=== PATIENT | male | born 1930 | race Caucasian/White ===

== ENCOUNTER 2020-08-23 19:50 | Inpatient (IN) | payer MEDICARE ==
[~2020-08-23] VITALS: Ht 182.9 cm; Wt 136.2 kg
[2020-08-23] MEDS ORDERED: ASPIRIN 81 MG CHEW TAB PO ONE ×2 (20:00→23:45)
[2020-08-23 21:06] LABS: BASOPHILS % 0.3 % (0.0-1.0); EOSINOPHILS # (AUTO) 0.2 (0.0-0.4); EOSINOPHILS % 1.8 % (0.0-6.0); HEMOGLOBIN 10.9 g/dL (14.0-18.0); LYMPHOCYTES # (AUTO) 2.1 (1.0-3.2); LYMPHOCYTES % 17.9 % (18.0-39.1); MEAN CORPUSCULAR HEMOGLOBIN 28.4 pg (28-32); MEAN CORPUSCULAR HGB CONC 32.1 g/dL (31-35); MEAN CORPUSCULAR VOLUME 88.5 fL (81-99); MONOCYTES # (AUTO) 0.8 (0.2-0.8); MONOCYTES % 6.7 % (4.4-11.3); NEUTROPHILS # (AUTO) 8.7 (2.1-6.9); NEUTROPHILS % 72.9 % (38.7-80.0); PLATELET COUNT 259 x10e3/uL (140-360); RED BLOOD COUNT 3.84 x10e6/uL (4.3-5.7); RED CELL DISTRIBUTION WIDTH 13.4 % (11.7-14.4)
[2020-08-23 21:23] LABS: ALBUMIN 2.3 g/dL (3.5-5.0); ALBUMIN/GLOBULIN RATIO 0.6 (0.8-2.0); ANION GAP 14.4 mmol/L (8-16); CALCIUM 7.9 mg/dL (8.4-10.2); CREATININE, SERUM 1.76 mg/dL (0.72-1.25); POTASSIUM 4.4 mmol/L (3.5-5.1)
[2020-08-23 21:29] LABS: CREATINE KINASE MB 2.1 ng/mL (0-5.0)
[2020-08-23 22:41] LABS: B-TYPE NATRIURETIC PEPTIDE2 21.1 pg/mL (0-100)
[2020-08-23] MEDS ORDERED: LEVOFLOXACIN 500 MG TAB PO ONE (23:15)
[2020-08-24] VITALS (7 sets, daily range): BP systolic 123–148; BP diastolic 59–72
[2020-08-24] MEDS: ONDANSETRON HCL INJ 2MG/ML 2ML 2 MG/ML VIAL IV PRN (00:43)
[2020-08-24] MEDS ORDERED: ONDANSETRON HCL INJ 2MG/ML 2ML 2 MG/ML VIAL ONE (00:45)
[2020-08-24] MEDS: PIPER-TAZ 3.375 GM 50 ML IV SCH ×3 (01:15→05:59)
[2020-08-24] MEDS ORDERED: NOVOLOG100 UNITS1 (04:40)
[2020-08-24] MEDS ORDERED: METOPROLOL SUCC25 MG (04:40)
[2020-08-24] MEDS ORDERED: FUROSEMIDE40 MG PO (04:40)
[2020-08-24] MEDS ORDERED: SERTRALINE HCL50 MG PO (04:40)
[2020-08-24] MEDS ORDERED: ZOFRAN4 MG PO (04:40)
[2020-08-24] MEDS ORDERED: COLACE100 MG PO (04:40)
[2020-08-24] MEDS ORDERED: HEMATINIC-FOLI1 EACH (04:40)
[2020-08-24] MEDS ORDERED: ACETAMINOP325 MG/10 PO (04:40)
[2020-08-24] MEDS ORDERED: NITROSTAT0.4 MG SL (04:40)
[2020-08-24] MEDS ORDERED: CARAFATE1 GM/10 ML PO (04:40)
[2020-08-24] MEDS ORDERED: LEVOTHYROXINE88 MCG PO (04:40)
[2020-08-24] MEDS ORDERED: PANTOPRAZOLE SO40 MG PO (04:40)
[2020-08-24] MEDS ORDERED: ASPIRIN81 MG (04:40)
[2020-08-24] MEDS ORDERED: DULCOLAX SUPP10 MG RC (04:40)
[2020-08-24] MEDS ORDERED: NIFEDIPINE ER30 M1 PO (04:40)
[2020-08-24] MEDS ORDERED: RANEXA500 MG PO (04:40)
[2020-08-24] MEDS ORDERED: ACETAMINOPHEN650 MG RC (04:40)
[2020-08-24] MEDS ORDERED: LACTULOSE20 GM/30 M PO (04:40)
[2020-08-24] MEDS ORDERED: ATORVASTATIN CA20 MG PO (04:40)
[2020-08-24] MEDS ORDERED: FAMOTIDINE20 MG PO (04:40)
[2020-08-24] MEDS ORDERED: ACETAMINOPHEN325 M1 PO (04:40)
[2020-08-24] MEDS ORDERED: GLIMEPIRIDE2 MG PO (04:40)
[2020-08-24] MEDS ORDERED: MUCINEX DM ER1 EACH PO (04:40)
[2020-08-24] MEDS ORDERED: ASCORBIC ACID500 MG PO (04:40)
[2020-08-24] MEDS ORDERED: BASAGLAR K100 UNIT/1 (04:40)
[2020-08-24] MEDS ORDERED: ZETIA10 MG PO (04:40)
[2020-08-24] MEDS ORDERED: SODIUM CHLORIDE 0.9% 250ML 250 ML ONE ×2 (05:52→10:24)
[2020-08-24] MEDS ORDERED: ACETAMINOPHEN 325 MG TAB PO PRN (08:45)
[2020-08-24] MEDS ORDERED: HYDRALAZINE HCL 20 MG/ML VIAL IV PRN (08:45)
[2020-08-24 08:47] LABS: BASOPHILS # (AUTO) 0.1 (0.0-0.1); BASOPHILS % 0.5 % (0.0-1.0); EOSINOPHILS # (AUTO) 0.6 (0.0-0.4); EOSINOPHILS % 5.2 % (0.0-6.0); HEMATOCRIT 34.1 % (38.2-49.6); HEMOGLOBIN 10.7 g/dL (14.0-18.0); LYMPHOCYTES # (AUTO) 2.7 (1.0-3.2); LYMPHOCYTES % 25.5 % (18.0-39.1); MEAN CORPUSCULAR HEMOGLOBIN 28.2 pg (28-32); MEAN CORPUSCULAR HGB CONC 31.4 g/dL (31-35); MONOCYTES # (AUTO) 0.8 (0.2-0.8); MONOCYTES % 7.9 % (4.4-11.3); NEUTROPHILS # (AUTO) 6.4 (2.1-6.9); NEUTROPHILS % 60.5 % (38.7-80.0); PLATELET COUNT 242 x10e3/uL (140-360); RED BLOOD COUNT 3.79 x10e6/uL (4.3-5.7); RED CELL DISTRIBUTION WIDTH 13.5 % (11.7-14.4)
[2020-08-24] MEDS ORDERED: LACTULOSE SYRUP 20 GM/30 ML UDC PO PRN (09:00)
[2020-08-24] MEDS ORDERED: BISACODYL 10 MG SUPP PR PRN (09:00)
[2020-08-24] MEDS ORDERED: NITROGLYCERIN 0.4 MG SUBL SL PRN (09:00)
[2020-08-24 09:11] LABS: ALBUMIN 2.5 g/dL (3.5-5.0); ALBUMIN/GLOBULIN RATIO 0.7 (0.8-2.0); ANION GAP 14.7 mmol/L (8-16); CALCIUM 8.1 mg/dL (8.4-10.2); CREATININE, SERUM 1.78 mg/dL (0.72-1.25); POTASSIUM 3.7 mmol/L (3.5-5.1)
[2020-08-24] MEDS ORDERED: DEXTROSE 50% SYRINGE 50 ML IV PRN (09:15)
[2020-08-24] MEDS ORDERED: TRAMADOL HCL 50 MG TAB PO PRN (09:15)
[2020-08-24] MEDS ORDERED: CEFTRIAXONE SOD 1 GM/NS 50 ML 50 ML IV SCH (09:30)
[2020-08-24 09:46] LABS: CREATINE KINASE MB 2.2 ng/mL (0-5.0)
[2020-08-24] MEDS: ASPIRIN 81 MG CHEW TAB PO SCH (10:40)
[2020-08-24] MEDS: FUROSEMIDE 40 MG TAB PO SCH ×2 (10:40→21:48)
[2020-08-24] MEDS: DOCUSATE SODIUM 100 MG CAP PO SCH ×2 (10:40→18:16)
[2020-08-24] MEDS: AZITHROMYCIN 500MG/NS 250 ML 250 ML IV SCH (10:40)
[2020-08-24] MEDS: GUAIFENESIN 600MG/DEXTROMETHORPHAN 30MG TABSR PO SCH ×2 (10:41→16:47)
[2020-08-24] MEDS: RANOLAZINE 500 MG TABSR PO SCH ×2 (10:41→21:49)
[2020-08-24] MEDS: ASCORBIC ACID 500 MG TAB PO SCH (10:44)
[2020-08-24] MEDS: NIFEDIPINE CR 30 MG TAB PO SCH (10:44)
[2020-08-24] MEDS: METOPROLOL SUCCINATE 25 MG TAB XL PO SCH ×2 (10:44→21:50)
[2020-08-24] MEDS: SUCRALFATE 1 GM/10 ML SUSP PO SCH ×3 (10:44→21:48)
[2020-08-24] MEDS ORDERED: PANTOPRAZOLE SOD 40 MG TABEC PO SCH (11:30)
[2020-08-24] MEDS: INSULIN LISPRO 100 UNIT/1 ML 3ML VIAL SQ SCH ×3 (11:30→21:00)
[2020-08-24] MEDS: ALBUTEROL/IPRATROPIUM 3 ML NEB NEB SCH ×4 (12:00→19:30)
[2020-08-24 12:23] LABS: CLARITY,URINE SL CLOUDY (CLEAR); COLOR,URINE YELLOW (YELLOW); LEUKOCYTE ESTERASE ,URINE TRACE (NEGATIVE)
[2020-08-24 12:24] LABS: BACTERIA,URINE RARE /HPF; BILIRUBIN,URINE NEGATIVE (NEGATIVE); EPITHELIAL CELLS,URINE FEW /LPF; KETONES,URINE NEGATIVE (NEGATIVE); NITRITE,URINE NEGATIVE (NEGATIVE); PROTEIN,URINE DIPSTICK 1+ (NEGATIVE); URINE UROBILINOGEN 0.2 mg/dL (0.2 - 1)
[2020-08-24] MEDS ORDERED: CEFEPIME HCL 1 GM VIAL IV SCH (13:00)
[2020-08-24] MEDS ORDERED: VANCOMYCIN 1GM/NS 250 ML 250 ML IV ONE ×2 (13:30→19:30)
[2020-08-24] MEDS ORDERED: FUROSEMIDE INJ 10 MG/ML 4 ML VIAL IV ONE (13:30)
[2020-08-24] MEDS ORDERED: TRELEGY ELLIPT1 EACH (14:29)
[2020-08-24] MEDS ORDERED: CITRATE OF MAGNESIA 300ML BOTTLE PO ONE (15:00)
[2020-08-24] MEDS: CEFEPIME 1GM/NS 0.9% 50 ML 50 ML IV SCH (16:47)
[2020-08-24] MEDS: ENOXAPARIN SOD INJ 40 MG/0.4 ML SYR SC SCH (16:47)
[2020-08-24] MEDS: FAMOTIDINE 20 MG TAB PO SCH ×2 (16:47→21:48)
[2020-08-24 18:54] LABS: CREATINE KINASE MB 2.4 ng/mL (0-5.0)
[2020-08-24] MEDS: INSULIN GLARGINE 100 UNITS/ML VIAL SQ SCH (21:00)
[2020-08-24] MEDS: ATORVASTATIN 20 MG TAB PO SCH (21:48)
[2020-08-24] MEDS: EZETIMIBE 10 MG TAB PO SCH (21:49)
[2020-08-24] MEDS: SERTRALINE HCL 50 MG TAB PO SCH (21:50)
[2020-08-25] VITALS (7 sets, daily range): BP systolic 122–182; BP diastolic 54–91
[2020-08-25] MEDS: ALBUTEROL/IPRATROPIUM 3 ML NEB NEB SCH ×5 (01:30→19:59)
[2020-08-25 05:19] LABS: BASOPHILS % 0.4 % (0.0-1.0); EOSINOPHILS # (AUTO) 0.7 (0.0-0.4); EOSINOPHILS % 6.8 % (0.0-6.0); HEMATOCRIT 31.7 % (38.2-49.6); HEMOGLOBIN 10.3 g/dL (14.0-18.0); LYMPHOCYTES # (AUTO) 2.4 (1.0-3.2); LYMPHOCYTES % 24.4 % (18.0-39.1); MEAN CORPUSCULAR HEMOGLOBIN 28.9 pg (28-32); MEAN CORPUSCULAR HGB CONC 32.5 g/dL (31-35); MONOCYTES # (AUTO) 0.7 (0.2-0.8); MONOCYTES % 7.6 % (4.4-11.3); NEUTROPHILS # (AUTO) 5.8 (2.1-6.9); NEUTROPHILS % 60.3 % (38.7-80.0); PLATELET COUNT 227 x10e3/uL (140-360); RED BLOOD COUNT 3.56 x10e6/uL (4.3-5.7); RED CELL DISTRIBUTION WIDTH 13.2 % (11.7-14.4)
[2020-08-25 05:33] LABS: INR 1.09; PROTHROMBIN TIME 14.7 seconds (11.9-14.5)
[2020-08-25 05:48] LABS: ALBUMIN 2.3 g/dL (3.5-5.0); ALBUMIN/GLOBULIN RATIO 0.7 (0.8-2.0); CALCIUM 7.9 mg/dL (8.4-10.2); CREATININE, SERUM 1.64 mg/dL (0.72-1.25)
[2020-08-25] MEDS: VILANTEROL INH SCH (06:00)
[2020-08-25] MEDS: LEVOTHYROXINE SODIUM 88 MCG TAB PO SCH (06:00)
[2020-08-25] MEDS: FLUTICASONE FUROATE INH SCH (06:00)
[2020-08-25] MEDS: UMECLIDINIUM INH SCH (06:00)
[2020-08-25 06:12] LABS: CHOL/HDL RATIO 3.3 (3.9-4.7)
[2020-08-25 06:33] LABS: THYROID STIMULATING HORMONE 4.715 uIU/mL (0.350-4.940)
[2020-08-25] MEDS: SUCRALFATE 1 GM/10 ML SUSP PO SCH ×4 (07:30→20:25)
[2020-08-25] MEDS: INSULIN LISPRO 100 UNIT/1 ML 3ML VIAL SQ SCH ×4 (07:30→21:00)
[2020-08-25] MEDS: FAMOTIDINE 20 MG TAB PO SCH ×2 (07:30→20:26)
[2020-08-25] MEDS: METOPROLOL SUCCINATE 25 MG TAB XL PO SCH ×2 (09:00→20:27)
[2020-08-25] MEDS: NIFEDIPINE CR 30 MG TAB PO SCH (09:00)
[2020-08-25] MEDS: DOCUSATE SODIUM 100 MG CAP PO SCH ×2 (09:00→16:43)
[2020-08-25] MEDS: RANOLAZINE 500 MG TABSR PO SCH ×2 (09:00→20:27)
[2020-08-25] MEDS: ASPIRIN 81 MG CHEW TAB PO SCH (09:00)
[2020-08-25] MEDS: OMEGA 3 POLYUNSAT FATTY ACIDS 1000 MG SOFTGEL PO SCH (09:00)
[2020-08-25] MEDS: ASCORBIC ACID 500 MG TAB PO SCH (09:00)
[2020-08-25] MEDS: FUROSEMIDE 40 MG TAB PO SCH ×2 (09:00→20:26)
[2020-08-25] MEDS: GUAIFENESIN 600MG/DEXTROMETHORPHAN 30MG TABSR PO SCH ×2 (09:00→16:43)
[2020-08-25] MEDS: LORATADINE 10 MG TAB PO SCH (09:00)
[2020-08-25] MEDS: POLYETHYLENE GLYCOL 3350 17 GM PACK PO SCH (09:00)
[2020-08-25] MEDS: AZITHROMYCIN 500MG/NS 250 ML 250 ML IV SCH (09:10)
[2020-08-25] MEDS ORDERED: MINERAL OIL 132 ML BTL PR ONE ×2 (09:45→10:30)
[2020-08-25] MEDS: INSULIN GLARGINE 100 UNITS/ML VIAL SQ SCH ×2 (09:50→21:00)
[2020-08-25] MEDS ORDERED: LACTULOSE SYRUP 20 GM/30 ML UDC PO ONE (11:00)
[2020-08-25] MEDS ORDERED: BISACODYL 5 MG TAB EC PO ONE (11:00)
[2020-08-25] MEDS: CEFEPIME 1GM/NS 0.9% 50 ML 50 ML IV SCH (14:21)
[2020-08-25] MEDS: ENOXAPARIN SOD INJ 40 MG/0.4 ML SYR SC SCH (16:43)
[2020-08-25] MEDS: ATORVASTATIN 20 MG TAB PO SCH (20:26)
[2020-08-25] MEDS: EZETIMIBE 10 MG TAB PO SCH (20:27)
[2020-08-25] MEDS: SERTRALINE HCL 50 MG TAB PO SCH (20:28)
[2020-08-26] VITALS (7 sets, daily range): BP systolic 115–152; BP diastolic 51–87
[2020-08-26] MEDS: ALBUTEROL/IPRATROPIUM 3 ML NEB NEB SCH ×5 (00:03→23:55)
[2020-08-26] MEDS: LEVOTHYROXINE SODIUM 88 MCG TAB PO SCH (05:00)
[2020-08-26] MEDS: FLUTICASONE FUROATE INH SCH (05:01)
[2020-08-26] MEDS: VILANTEROL INH SCH (05:01)
[2020-08-26] MEDS: UMECLIDINIUM INH SCH (05:01)
[2020-08-26 05:43] LABS: ANION GAP 11.8 mmol/L (8-16); BLOOD UREA NITROGEN < 5 mg/dL (7-26); BUN/CREATININE RATIO 3 (6-25); CALCIUM 8.2 mg/dL (8.4-10.2); CARBON DIOXIDE 30 mmol/L (22-29); CHLORIDE 102 mmol/L (98-107); CREATININE, SERUM 1.45 mg/dL (0.72-1.25); EST GLOMERULAR FILTRATION RATE 46 ML/MIN (60-); GLUCOSE 102 mg/dL (74-118); MAGNESIUM 2.7 MG/DL (1.3-2.1); POTASSIUM 3.8 mmol/L (3.5-5.1); SODIUM 140 mmol/L (136-145)
[2020-08-26 05:48] LABS: BASOPHILS % 0.4 % (0.0-1.0); EOSINOPHILS # (AUTO) 0.4 (0.0-0.4); EOSINOPHILS % 4.8 % (0.0-6.0); HEMATOCRIT 33.2 % (38.2-49.6); HEMOGLOBIN 10.4 g/dL (14.0-18.0); LYMPHOCYTES # (AUTO) 2.4 (1.0-3.2); LYMPHOCYTES % 29.8 % (18.0-39.1); MEAN CORPUSCULAR HEMOGLOBIN 28.3 pg (28-32); MEAN CORPUSCULAR HGB CONC 31.3 g/dL (31-35); MEAN CORPUSCULAR VOLUME 90.5 fL (81-99); MONOCYTES # (AUTO) 0.7 (0.2-0.8); MONOCYTES % 8.2 % (4.4-11.3); NEUTROPHILS # (AUTO) 4.5 (2.1-6.9); NEUTROPHILS % 56.2 % (38.7-80.0); PLATELET COUNT 234 x10e3/uL (140-360); RED BLOOD COUNT 3.67 x10e6/uL (4.3-5.7); RED CELL DISTRIBUTION WIDTH 13.4 % (11.7-14.4)
[2020-08-26] MEDS: PANTOPRAZOLE SOD 40 MG TABEC PO SCH (07:30)
[2020-08-26] MEDS: INSULIN LISPRO 100 UNIT/1 ML 3ML VIAL SQ SCH ×4 (07:30→21:00)
[2020-08-26] MEDS: SUCRALFATE 1 GM/10 ML SUSP PO SCH ×4 (07:30→21:20)
[2020-08-26] MEDS: AZITHROMYCIN 500MG/NS 250 ML 250 ML IV SCH (08:45)
[2020-08-26] MEDS: POLYETHYLENE GLYCOL 3350 17 GM PACK PO SCH (09:00)
[2020-08-26] MEDS: LORATADINE 10 MG TAB PO SCH (09:00)
[2020-08-26] MEDS: ASCORBIC ACID 500 MG TAB PO SCH (09:00)
[2020-08-26] MEDS: ASPIRIN 81 MG CHEW TAB PO SCH (09:00)
[2020-08-26] MEDS: DOCUSATE SODIUM 100 MG CAP PO SCH ×2 (09:00→17:47)
[2020-08-26] MEDS: GUAIFENESIN 600MG/DEXTROMETHORPHAN 30MG TABSR PO SCH ×2 (09:00→17:47)
[2020-08-26] MEDS: RANOLAZINE 500 MG TABSR PO SCH ×2 (09:00→21:21)
[2020-08-26] MEDS: NIFEDIPINE CR 30 MG TAB PO SCH (09:00)
[2020-08-26] MEDS: INSULIN GLARGINE 100 UNITS/ML VIAL SQ SCH ×2 (09:00→21:00)
[2020-08-26] MEDS: OMEGA 3 POLYUNSAT FATTY ACIDS 1000 MG SOFTGEL PO SCH (09:00)
[2020-08-26] MEDS: FUROSEMIDE 40 MG TAB PO SCH ×2 (09:00→21:20)
[2020-08-26] MEDS: METOPROLOL SUCCINATE 25 MG TAB XL PO SCH ×2 (09:00→21:21)
[2020-08-26] MEDS: CEFEPIME 1GM/NS 0.9% 50 ML 50 ML IV SCH (14:14)
[2020-08-26 15:27] LABS: BODY FLUID APPEARANCE SL.CLOUDY; BODY FLUID COLOR YELLOW; BODY FLUID TYPE PLEURAL; GLUCOSE,BODY FLUID 140 mg/dL; RBC,BODY FLUID 307 cells/uL; WBC,BODY FLUID 884 cells/uL
[2020-08-26] MEDS ORDERED: BISACODYL 10 MG SUPP PR ONE (15:30)
[2020-08-26 15:34] LABS: LYMPHOCYTES,BODY FLUID 47 %; MONO/MACROPHG,BODY FLUID 24 %; NEUTROPHILS,BODY FLUID 29 %
[2020-08-26] MEDS: ENOXAPARIN SOD INJ 40 MG/0.4 ML SYR SC SCH (17:47)
[2020-08-26] MEDS: BALSAM PERU/CASTOR OIL 60 GM OINT...G. TP SCH (17:56)
[2020-08-26] MEDS: ATORVASTATIN 20 MG TAB PO SCH (21:20)
[2020-08-26] MEDS: FAMOTIDINE 20 MG TAB PO SCH (21:20)
[2020-08-26] MEDS: SERTRALINE HCL 50 MG TAB PO SCH (21:21)
[2020-08-26] MEDS: EZETIMIBE 10 MG TAB PO SCH (21:21)
[2020-08-27] VITALS (7 sets, daily range): BP systolic 122–159; BP diastolic 67–81
[2020-08-27] MEDS: LEVOTHYROXINE SODIUM 88 MCG TAB PO SCH (06:00)
[2020-08-27] MEDS: UMECLIDINIUM INH SCH (06:00)
[2020-08-27] MEDS: FLUTICASONE FUROATE INH SCH (06:00)
[2020-08-27] MEDS: VILANTEROL INH SCH (06:00)
[2020-08-27] MEDS: PANTOPRAZOLE SOD 40 MG TABEC PO SCH (07:30)
[2020-08-27] MEDS: SUCRALFATE 1 GM/10 ML SUSP PO SCH ×4 (07:30→21:49)
[2020-08-27] MEDS: INSULIN LISPRO 100 UNIT/1 ML 3ML VIAL SQ SCH ×4 (07:30→21:51)
[2020-08-27] MEDS: ALBUTEROL/IPRATROPIUM 3 ML NEB NEB SCH ×3 (07:57→20:05)
[2020-08-27] MEDS: RANOLAZINE 500 MG TABSR PO SCH ×2 (09:00→21:49)
[2020-08-27] MEDS: POLYETHYLENE GLYCOL 3350 17 GM PACK PO SCH (09:00)
[2020-08-27] MEDS: METOPROLOL SUCCINATE 25 MG TAB XL PO SCH ×2 (09:00→21:49)
[2020-08-27] MEDS: ASCORBIC ACID 500 MG TAB PO SCH (09:00)
[2020-08-27] MEDS: LORATADINE 10 MG TAB PO SCH (09:00)
[2020-08-27] MEDS: DOCUSATE SODIUM 100 MG CAP PO SCH ×2 (09:00→19:34)
[2020-08-27] MEDS: METOCLOPRAMIDE HCL 10 MG/2ML VIAL IV SCH ×2 (09:00→17:00)
[2020-08-27] MEDS: OMEGA 3 POLYUNSAT FATTY ACIDS 1000 MG SOFTGEL PO SCH (09:00)
[2020-08-27] MEDS: INSULIN GLARGINE 100 UNITS/ML VIAL SQ SCH ×2 (09:00→21:51)
[2020-08-27] MEDS: GUAIFENESIN 600MG/DEXTROMETHORPHAN 30MG TABSR PO SCH ×2 (09:00→19:34)
[2020-08-27] MEDS: ASPIRIN 81 MG CHEW TAB PO SCH (09:00)
[2020-08-27] MEDS: FUROSEMIDE 40 MG TAB PO SCH ×2 (09:00→21:49)
[2020-08-27] MEDS: NIFEDIPINE CR 30 MG TAB PO SCH (09:00)
[2020-08-27] MEDS ORDERED: LIDOCAINE HCL 4% 50 ML BTL ONE (09:42)
[2020-08-27] MEDS ORDERED: EPINEPHRINE HCL 1:1000 1ML 1 MG/ML AMP ONE (09:42)
[2020-08-27] MEDS ORDERED: LIDOCAINE HCL 2% 30 ML TUBE ONE (09:42)
[2020-08-27] MEDS: AZITHROMYCIN 500MG/NS 250 ML 250 ML IV SCH (10:42)
[2020-08-27] MEDS ORDERED: FENTANYL CITRATE/PF 100MCG/2 ML INJ ONE (12:22)
[2020-08-27] MEDS: CEFEPIME 1GM/NS 0.9% 50 ML 50 ML IV SCH (13:30)
[2020-08-27 14:56] LABS: BASOPHILS % 0.3 % (0.0-1.0); EOSINOPHILS # (AUTO) 0.1 (0.0-0.4); EOSINOPHILS % 0.4 % (0.0-6.0); HEMATOCRIT 35.4 % (38.2-49.6); HEMOGLOBIN 11.1 g/dL (14.0-18.0); LYMPHOCYTES # (AUTO) 1.2 (1.0-3.2); LYMPHOCYTES % 9.1 % (18.0-39.1); MEAN CORPUSCULAR HGB CONC 31.4 g/dL (31-35); MEAN CORPUSCULAR VOLUME 92.4 fL (81-99); MONOCYTES # (AUTO) 0.3 (0.2-0.8); MONOCYTES % 2.1 % (4.4-11.3); NEUTROPHILS # (AUTO) 11.1 (2.1-6.9); NEUTROPHILS % 87.6 % (38.7-80.0); PLATELET COUNT 245 x10e3/uL (140-360); RED BLOOD COUNT 3.83 x10e6/uL (4.3-5.7); RED CELL DISTRIBUTION WIDTH 13.5 % (11.7-14.4)
[2020-08-27 15:15] LABS: ANION GAP 16.2 mmol/L (8-16); CALCIUM 8.5 mg/dL (8.4-10.2); CREATININE, SERUM 1.56 mg/dL (0.72-1.25); MAGNESIUM 2.5 MG/DL (1.3-2.1); PHOSPHORUS 3.7 MG/DL (2.3-4.7); POTASSIUM 4.2 mmol/L (3.5-5.1)
[2020-08-27] MEDS ORDERED: DEXAMETHASONE SOD PHOS INJ 4 MG/ML VIAL ONE (16:28)
[2020-08-27] MEDS ORDERED: ONDANSETRON HCL INJ 2MG/ML 2ML 2 MG/ML VIAL ONE (16:28)
[2020-08-27] MEDS ORDERED: PROPOFOL IV EMULSION 10 MG/ML 20 ML VIAL ONE (16:28)
[2020-08-27] MEDS ORDERED: SUCCINYLCHOLINE CHLORIDE 20 MG/ML 10ML VIAL ONE (16:28)
[2020-08-27] MEDS ORDERED: SEVOFLURANE INHAL SOLN 250 ML PEN BTL ONE (16:28)
[2020-08-27] MEDS: PENICILLIN V POTASSIUM 500 MG TAB PO SCH ×3 (18:00→21:49)
[2020-08-27] MEDS: ENOXAPARIN SOD INJ 40 MG/0.4 ML SYR SC SCH (19:34)
[2020-08-27] MEDS: SERTRALINE HCL 50 MG TAB PO SCH (21:49)
[2020-08-27] MEDS: FAMOTIDINE 20 MG TAB PO SCH (21:49)
[2020-08-27] MEDS: ATORVASTATIN 20 MG TAB PO SCH (21:49)
[2020-08-27] MEDS: EZETIMIBE 10 MG TAB PO SCH (21:49)
[2020-08-27] MEDS: ONDANSETRON HCL INJ 2MG/ML 2ML 2 MG/ML VIAL IV PRN (21:54)
[2020-08-28] VITALS (9 sets, daily range): BP systolic 110–144; BP diastolic 52–98
[2020-08-28] MEDS: ALBUTEROL/IPRATROPIUM 3 ML NEB NEB SCH ×5 (01:05→19:35)
[2020-08-28] MEDS ORDERED: BISACODYL 10 MG SUPP PR ONE (01:15)
[2020-08-28] MEDS ORDERED: MAGNESIUM HYDROXIDE 30 ML UDC PO ONE (01:15)
[2020-08-28] MEDS ORDERED: BISACODYL 5 MG TAB EC PO ONE ×5 (02:30→04:30)
[2020-08-28] MEDS: VILANTEROL INH SCH (05:37)
[2020-08-28] MEDS: LEVOTHYROXINE SODIUM 88 MCG TAB PO SCH (05:37)
[2020-08-28] MEDS: FLUTICASONE FUROATE INH SCH (05:37)
[2020-08-28] MEDS: UMECLIDINIUM INH SCH (05:37)
[2020-08-28 05:44] LABS: BASOPHILS % 0.2 % (0.0-1.0); EOSINOPHILS % 0.1 % (0.0-6.0); HEMATOCRIT 32.3 % (38.2-49.6); LYMPHOCYTES # (AUTO) 2.4 (1.0-3.2); LYMPHOCYTES % 17.4 % (18.0-39.1); MEAN CORPUSCULAR HEMOGLOBIN 28.3 pg (28-32); MEAN CORPUSCULAR VOLUME 91.5 fL (81-99); MONOCYTES % 7.2 % (4.4-11.3); NEUTROPHILS # (AUTO) 10.1 (2.1-6.9); NEUTROPHILS % 74.8 % (38.7-80.0); PLATELET COUNT 227 x10e3/uL (140-360); RED BLOOD COUNT 3.53 x10e6/uL (4.3-5.7); RED CELL DISTRIBUTION WIDTH 13.3 % (11.7-14.4)
[2020-08-28 06:06] LABS: ANION GAP 15.2 mmol/L (8-16); CALCIUM 8.4 mg/dL (8.4-10.2); CREATININE, SERUM 1.61 mg/dL (0.72-1.25); POTASSIUM 4.2 mmol/L (3.5-5.1)
[2020-08-28] MEDS: SUCRALFATE 1 GM/10 ML SUSP PO SCH ×4 (07:30→21:58)
[2020-08-28] MEDS: INSULIN LISPRO 100 UNIT/1 ML 3ML VIAL SQ SCH ×4 (07:30→21:00)
[2020-08-28] MEDS: BALSAM PERU/CASTOR OIL 60 GM OINT...G. TP SCH ×2 (09:00→13:23)
[2020-08-28] MEDS: INSULIN GLARGINE 100 UNITS/ML VIAL SQ SCH ×2 (10:50→21:00)
[2020-08-28] MEDS: PENICILLIN V POTASSIUM 500 MG TAB PO SCH ×4 (13:00→21:58)
[2020-08-28] MEDS: PANTOPRAZOLE SOD 40 MG TABEC PO SCH (14:09)
[2020-08-28] MEDS: AZITHROMYCIN 500MG/NS 250 ML 250 ML IV SCH (14:12)
[2020-08-28] MEDS: ASPIRIN 81 MG CHEW TAB PO SCH (14:13)
[2020-08-28] MEDS: METOCLOPRAMIDE HCL 10 MG/2ML VIAL IV SCH ×2 (14:13→18:24)
[2020-08-28] MEDS: OMEGA 3 POLYUNSAT FATTY ACIDS 1000 MG SOFTGEL PO SCH (14:14)
[2020-08-28] MEDS: GUAIFENESIN 600MG/DEXTROMETHORPHAN 30MG TABSR PO SCH ×2 (14:14→18:25)
[2020-08-28] MEDS: DOCUSATE SODIUM 100 MG CAP PO SCH ×2 (14:14→18:25)
[2020-08-28] MEDS: FUROSEMIDE 40 MG TAB PO SCH ×2 (14:14→21:58)
[2020-08-28] MEDS: LORATADINE 10 MG TAB PO SCH (14:14)
[2020-08-28] MEDS: NIFEDIPINE CR 30 MG TAB PO SCH (14:15)
[2020-08-28] MEDS: RANOLAZINE 500 MG TABSR PO SCH ×2 (14:16→21:58)
[2020-08-28] MEDS: METOPROLOL SUCCINATE 25 MG TAB XL PO SCH ×2 (14:16→21:58)
[2020-08-28] MEDS: ASCORBIC ACID 500 MG TAB PO SCH (14:16)
[2020-08-28] MEDS: POLYETHYLENE GLYCOL 3350 17 GM PACK PO SCH (14:20)
[2020-08-28] MEDS: CEFEPIME 1GM/NS 0.9% 50 ML 50 ML IV SCH (18:19)
[2020-08-28] MEDS: ENOXAPARIN SOD INJ 40 MG/0.4 ML SYR SC SCH (18:25)
[2020-08-28] MEDS: EZETIMIBE 10 MG TAB PO SCH (21:58)
[2020-08-28] MEDS: SERTRALINE HCL 50 MG TAB PO SCH (21:58)
[2020-08-28] MEDS: FAMOTIDINE 20 MG TAB PO SCH (21:58)
[2020-08-28] MEDS: ATORVASTATIN 20 MG TAB PO SCH (21:58)
[2020-08-28] MEDS ORDERED: SOD PHOSPHATE/SOD BIPHOSPHATE ENEMA 132 ML BTL PR ONE (22:30)
[2020-08-29] VITALS (8 sets, daily range): BP systolic 112–139; BP diastolic 50–70
[2020-08-29] MEDS: ALBUTEROL/IPRATROPIUM 3 ML NEB NEB SCH ×3 (01:05→13:50)
[2020-08-29 04:57] LABS: BASOPHILS % 0.3 % (0.0-1.0); EOSINOPHILS # (AUTO) 0.4 (0.0-0.4); HEMATOCRIT 29.6 % (38.2-49.6); HEMOGLOBIN 9.3 g/dL (14.0-18.0); LYMPHOCYTES # (AUTO) 2.4 (1.0-3.2); LYMPHOCYTES % 20.5 % (18.0-39.1); MEAN CORPUSCULAR HEMOGLOBIN 28.6 pg (28-32); MEAN CORPUSCULAR HGB CONC 31.4 g/dL (31-35); MEAN CORPUSCULAR VOLUME 91.1 fL (81-99); MONOCYTES # (AUTO) 0.8 (0.2-0.8); MONOCYTES % 6.9 % (4.4-11.3); NEUTROPHILS # (AUTO) 8.2 (2.1-6.9); PLATELET COUNT 183 x10e3/uL (140-360); RED BLOOD COUNT 3.25 x10e6/uL (4.3-5.7); RED CELL DISTRIBUTION WIDTH 13.2 % (11.7-14.4)
[2020-08-29 05:45] LABS: FERRITIN 359.53 ng/mL (21.81-274.66)
[2020-08-29] MEDS: UMECLIDINIUM INH SCH (05:46)
[2020-08-29] MEDS: LEVOTHYROXINE SODIUM 88 MCG TAB PO SCH (05:46)
[2020-08-29] MEDS: VILANTEROL INH SCH (05:46)
[2020-08-29] MEDS: FLUTICASONE FUROATE INH SCH (05:46)
[2020-08-29 05:58] LABS: ANION GAP 13.1 mmol/L (8-16); CALCIUM 8.2 mg/dL (8.4-10.2); CREATININE, SERUM 1.52 mg/dL (0.72-1.25); MAGNESIUM 2.3 MG/DL (1.3-2.1); POTASSIUM 4.1 mmol/L (3.5-5.1)
[2020-08-29] MEDS: PANTOPRAZOLE SOD 40 MG TABEC PO SCH (08:50)
[2020-08-29] MEDS: SUCRALFATE 1 GM/10 ML SUSP PO SCH ×4 (08:50→21:16)
[2020-08-29] MEDS: LORATADINE 10 MG TAB PO SCH (08:51)
[2020-08-29] MEDS: GUAIFENESIN 600MG/DEXTROMETHORPHAN 30MG TABSR PO SCH ×2 (08:51→16:31)
[2020-08-29] MEDS: METOCLOPRAMIDE HCL 10 MG/2ML VIAL IV SCH ×2 (08:51→16:31)
[2020-08-29] MEDS: POLYETHYLENE GLYCOL 3350 17 GM PACK PO SCH (08:51)
[2020-08-29] MEDS: ASPIRIN 81 MG CHEW TAB PO SCH (08:51)
[2020-08-29] MEDS: OMEGA 3 POLYUNSAT FATTY ACIDS 1000 MG SOFTGEL PO SCH (08:51)
[2020-08-29] MEDS: DOCUSATE SODIUM 100 MG CAP PO SCH ×2 (08:51→16:31)
[2020-08-29] MEDS: FUROSEMIDE 40 MG TAB PO SCH ×2 (08:51→21:16)
[2020-08-29] MEDS: PENICILLIN V POTASSIUM 500 MG TAB PO SCH ×4 (08:51→21:16)
[2020-08-29] MEDS: NIFEDIPINE CR 30 MG TAB PO SCH (08:52)
[2020-08-29] MEDS: RANOLAZINE 500 MG TABSR PO SCH ×2 (08:52→21:17)
[2020-08-29] MEDS: ASCORBIC ACID 500 MG TAB PO SCH (08:52)
[2020-08-29] MEDS: METOPROLOL SUCCINATE 25 MG TAB XL PO SCH ×2 (08:52→21:17)
[2020-08-29] MEDS: AZITHROMYCIN 500MG/NS 250 ML 250 ML IV SCH (09:02)
[2020-08-29] MEDS: BALSAM PERU/CASTOR OIL 60 GM OINT...G. TP SCH (09:03)
[2020-08-29] MEDS: INSULIN GLARGINE 100 UNITS/ML VIAL SQ SCH ×2 (09:24→21:00)
[2020-08-29] MEDS: INSULIN LISPRO 100 UNIT/1 ML 3ML VIAL SQ SCH ×4 (09:25→20:58)
[2020-08-29] MEDS: CEFEPIME 1GM/NS 0.9% 50 ML 50 ML IV SCH (12:18)
[2020-08-29] MEDS: ENOXAPARIN SOD INJ 40 MG/0.4 ML SYR SC SCH (16:31)
[2020-08-29] MEDS: FAMOTIDINE 20 MG TAB PO SCH (21:16)
[2020-08-29] MEDS: ATORVASTATIN 20 MG TAB PO SCH (21:16)
[2020-08-29] MEDS: EZETIMIBE 10 MG TAB PO SCH (21:17)
[2020-08-29] MEDS: SERTRALINE HCL 50 MG TAB PO SCH (21:17)
[2020-08-29] MEDS ORDERED: CYANOCOBALAMIN INJ 1,000 MCG/ML VIAL IM ONE (23:00)
[2020-08-30] MEDS: ALBUTEROL/IPRATROPIUM 3 ML NEB NEB SCH ×3 (01:25→14:22)
[2020-08-30 05:02] VITALS: BP 132/57
[2020-08-30] MEDS: UMECLIDINIUM INH SCH (06:00)
[2020-08-30] MEDS: FLUTICASONE FUROATE INH SCH (06:00)
[2020-08-30] MEDS: VILANTEROL INH SCH (06:00)
[2020-08-30 06:29] LABS: BASOPHILS % 0.2 % (0.0-1.0); EOSINOPHILS # (AUTO) 0.4 (0.0-0.4); EOSINOPHILS % 4.8 % (0.0-6.0); HEMOGLOBIN 9.4 g/dL (14.0-18.0); LYMPHOCYTES # (AUTO) 1.5 (1.0-3.2); LYMPHOCYTES % 16.5 % (18.0-39.1); MEAN CORPUSCULAR HEMOGLOBIN 28.1 pg (28-32); MEAN CORPUSCULAR HGB CONC 31.3 g/dL (31-35); MEAN CORPUSCULAR VOLUME 89.8 fL (81-99); MONOCYTES # (AUTO) 0.5 (0.2-0.8); MONOCYTES % 5.2 % (4.4-11.3); NEUTROPHILS # (AUTO) 6.7 (2.1-6.9); NEUTROPHILS % 72.9 % (38.7-80.0); PLATELET COUNT 188 x10e3/uL (140-360); RED BLOOD COUNT 3.34 x10e6/uL (4.3-5.7); RED CELL DISTRIBUTION WIDTH 13.1 % (11.7-14.4)
[2020-08-30 06:47] LABS: ANION GAP 11.1 mmol/L (8-16); CREATININE, SERUM 1.35 mg/dL (0.72-1.25); MAGNESIUM 2.3 MG/DL (1.3-2.1); POTASSIUM 4.1 mmol/L (3.5-5.1)
[2020-08-30] MEDS: LEVOTHYROXINE SODIUM 88 MCG TAB PO SCH (06:52)
[2020-08-30] MEDS: INSULIN LISPRO 100 UNIT/1 ML 3ML VIAL SQ SCH ×3 (07:30→16:30)
[2020-08-30] MEDS: PANTOPRAZOLE SOD 40 MG TABEC PO SCH (07:53)
[2020-08-30 08:23] VITALS: BP 130/64
[2020-08-30] MEDS: FUROSEMIDE 40 MG TAB PO SCH (08:43)
[2020-08-30] MEDS: OMEGA 3 POLYUNSAT FATTY ACIDS 1000 MG SOFTGEL PO SCH (08:43)
[2020-08-30] MEDS: LORATADINE 10 MG TAB PO SCH (08:43)
[2020-08-30] MEDS: GUAIFENESIN 600MG/DEXTROMETHORPHAN 30MG TABSR PO SCH ×2 (08:43→16:53)
[2020-08-30] MEDS: POLYETHYLENE GLYCOL 3350 17 GM PACK PO SCH (08:43)
[2020-08-30] MEDS: ASPIRIN 81 MG CHEW TAB PO SCH (08:43)
[2020-08-30] MEDS: DOCUSATE SODIUM 100 MG CAP PO SCH ×2 (08:43→16:53)
[2020-08-30] MEDS: SUCRALFATE 1 GM/10 ML SUSP PO SCH ×3 (08:43→16:53)
[2020-08-30] MEDS: AZITHROMYCIN 500MG/NS 250 ML 250 ML IV SCH (08:43)
[2020-08-30] MEDS: PENICILLIN V POTASSIUM 500 MG TAB PO SCH ×3 (08:43→16:54)
[2020-08-30] MEDS: NIFEDIPINE CR 30 MG TAB PO SCH (08:44)
[2020-08-30] MEDS: BALSAM PERU/CASTOR OIL 60 GM OINT...G. TP SCH (08:44)
[2020-08-30] MEDS: METOPROLOL SUCCINATE 25 MG TAB XL PO SCH (08:44)
[2020-08-30] MEDS: RANOLAZINE 500 MG TABSR PO SCH (08:44)
[2020-08-30] MEDS: ASCORBIC ACID 500 MG TAB PO SCH (08:44)
[2020-08-30] MEDS: INSULIN GLARGINE 100 UNITS/ML VIAL SQ SCH (08:45)
[2020-08-30 09:00] VITALS: BP 130/64
[2020-08-30] MEDS ORDERED: CYANOCOBALAMIN INJ 1,000 MCG/ML VIAL IM SCH (09:00)
[2020-08-30] MEDS ORDERED: IRON SUCROSE 100 MG in SODIUM CHLORIDE 0.9% 100 ML 100 ML IV SCH (10:00)
[2020-08-30] MEDS ORDERED: PENCILLIN V PO250 MG PO (11:30)
[2020-08-30] MEDS ORDERED: PROTONIX40 MG/ML PO (11:30)
[2020-08-30] MEDS ORDERED: CEFEPIME 11 GM/50 ML IV (11:30)
[2020-08-30] MEDS ORDERED: MUCINEX DM ER1 EACH PO (11:30)
[2020-08-30] MEDS ORDERED: LOVENOX40 MG/0.4 SC (11:30)
[2020-08-30] MEDS ORDERED: Insulin Lispro SQ (11:30)
[2020-08-30] MEDS ORDERED: Albuterol/Ipratropium Nebulize NEB (11:30)
[2020-08-30] MEDS ORDERED: LORATADINE10 MG PO (11:30)
[2020-08-30] MEDS ORDERED: AZITHROMYCIN500 M3 IV (11:30)
[2020-08-30] MEDS ORDERED: MIRALAX17 GM PO (11:30)
[2020-08-30] MEDS ORDERED: ACETAMINOPHEN325 M1 PO (11:30)
[2020-08-30] MEDS ORDERED: OMEGA-3 FISH O1 EAC2 PO (11:30)
[2020-08-30] MEDS ORDERED: ULTRAM 50MG50 MG PO (11:30)
[2020-08-30] MEDS ORDERED: Insulin Glargine SQ (11:30)
[2020-08-30] MEDS ORDERED: VENOFER100 MG/5 M IV (11:30)
[2020-08-30] MEDS ORDERED: DEXTROSE 50%-WA50 M1 IV (11:30)
[2020-08-30] MEDS ORDERED: VENELEX OINTMEN60 GM TP (11:30)
[2020-08-30] MEDS ORDERED: Cyanocobalamin Inj IM (11:30)
[2020-08-30 13:10] VITALS: BP 133/64
[2020-08-30] MEDS: CEFEPIME 1GM/NS 0.9% 50 ML 50 ML IV SCH (14:55)
[2020-08-30 16:10] VITALS: BP 145/70
[2020-08-30] MEDS: ENOXAPARIN SOD INJ 40 MG/0.4 ML SYR SC SCH (16:53)
== END 2020-08-30 18:00 | DRG 194 ==
LOC: ER 19:55 → ERHOLD 08-24 00:35 → MED/SURG2 08-24 01:26
PROVIDERS: ADMIT Internal Medicine; ATTEND Internal Medicine
PROC: 0W9B3ZZ Drainage of Left Pleural Cavity, Percutaneous Approach (ICD-10-PCS; 2020-08-26)
PROC: 0B9G8ZX Drainage of Left Upper Lung Lobe, Via Natural or Artificial Opening Endoscopic, Diagnostic (ICD-10-PCS; 2020-08-27)
PROC: 0B918ZZ Drainage of Trachea, Via Natural or Artificial Opening Endoscopic (ICD-10-PCS; 2020-08-27)
PROC: 0BD28ZX Extraction of Carina, Via Natural or Artificial Opening Endoscopic, Diagnostic (ICD-10-PCS; 2020-08-27)
PROC: 0B9J8ZX Drainage of Left Lower Lung Lobe, Via Natural or Artificial Opening Endoscopic, Diagnostic (ICD-10-PCS; principal; 2020-08-27 11:00)
DX: J18.0 Bronchopneumonia, unspecified organism (principal); T83.511A Infection and inflammatory reaction due to indwelling urethral catheter, initial encounter; N39.0 Urinary tract infection, site not specified; I13.0 Hypertensive heart and chronic kidney disease with heart failure and stage 1 through stage 4 chronic kidney disease, or unspecified chronic kidney disease; I50.32 Chronic diastolic (congestive) heart failure; Z68.41 Body mass index [BMI] 40.0-44.9, adult; I48.20 Chronic atrial fibrillation, unspecified; J44.0 Chronic obstructive pulmonary disease with (acute) lower respiratory infection; J96.11 Chronic respiratory failure with hypoxia; J98.11 Atelectasis; N18.30 Chronic kidney disease, stage 3 unspecified; Z91.040 Latex allergy status; E66.01 Morbid (severe) obesity due to excess calories; E11.22 Type 2 diabetes mellitus with diabetic chronic kidney disease; I25.10 Atherosclerotic heart disease of native coronary artery without angina pectoris; E11.42 Type 2 diabetes mellitus with diabetic polyneuropathy; E03.9 Hypothyroidism, unspecified; E78.5 Hyperlipidemia, unspecified; Z82.3 Family history of stroke; G47.33 Obstructive sleep apnea (adult) (pediatric); F32.9 Major depressive disorder, single episode, unspecified; R53.81 Other malaise; N31.9 Neuromuscular dysfunction of bladder, unspecified; K56.41 Fecal impaction; E83.42 Hypomagnesemia; J98.09 Other diseases of bronchus, not elsewhere classified; B95.5 Unspecified streptococcus as the cause of diseases classified elsewhere; D64.9 Anemia, unspecified; Z79.4 Long term (current) use of insulin; Z79.82 Long term (current) use of aspirin; Z20.828 Contact with and (suspected) exposure to other viral communicable diseases
CPT/HCPCS: 31622; 32555; 36415; 71045; 71250; 74018; 80048; 80053; 80061; 81001; 82550; 82553; 82607; 82728; 82746; 82945; 82948; 83036; 83540; 83605; 83615; 83735; 83880; 84100; 84157; 84443; 84466; 84484; 85025; 85045; 85610; 85730; 87040; 87070; 87086; 87102; 87116; 87205; 87206; 87278; 88112; 88305; 88312; 89051; 93005; 94640; 94660; 96372; 99251; 99284; J0171; J0330; J0360; J0456; J0692; J0696; J1100; J1650; J1756; J1815; J2405; J2543; J2765; J3010; J3370; J3420; J7050; U0002

== ENCOUNTER → 2020-10-01 | Day surgery (SDC) | payer MEDICARE ==
[~2020-10-01] MED LIST: ACETAMINOP325 MG/10 PO; ACETAMINOPHEN325 M1 PO; ACETAMINOPHEN650 MG RC; ASCORBIC ACID500 MG PO; ASPIRIN81 MG; ATORVASTATIN CA20 MG PO; AZITHROMYCIN500 M3 IV; Albuterol/Ipratropium Nebulize NEB; BASAGLAR K100 UNIT/1; CARAFATE1 GM/10 ML PO; CEFEPIME 11 GM/50 ML IV; COLACE100 MG PO; Cyanocobalamin Inj IM; DEXTROSE 50%-WA50 M1 IV; DULCOLAX SUPP10 MG RC; FAMOTIDINE20 MG PO; FUROSEMIDE40 MG PO; GLIMEPIRIDE2 MG PO; HEMATINIC-FOLI1 EACH; Insulin Glargine SQ; Insulin Lispro SQ; LACTULOSE20 GM/30 M PO; LEVOTHYROXINE88 MCG PO; LIDOCAINE HCL 2% LOCAL INJ 5 ML SDV VIAL INJ ONE; LORATADINE10 MG PO; LOVENOX40 MG/0.4 SC; METOPROLOL SUCC25 MG; MIRALAX17 GM PO; MUCINEX DM ER1 EACH PO; NIFEDIPINE ER30 M1 PO; NITROSTAT0.4 MG SL; NOVOLOG100 UNITS1; OMEGA-3 FISH O1 EAC2 PO; PANTOPRAZOLE SO40 MG PO; PENCILLIN V PO250 MG PO; PROPOFOL IV EMULSION 10 MG/ML 20 ML VIAL ONE; PROTONIX40 MG/ML PO; RANEXA500 MG PO; SERTRALINE HCL50 MG PO; TRELEGY ELLIPT1 EACH; ULTRAM 50MG50 MG PO; VENELEX OINTMEN60 GM TP; VENOFER100 MG/5 M IV; ZETIA10 MG PO; ZOFRAN4 MG PO
[2020-10-01 08:17] LABS: BASOPHILS % 0.5 % (0.0-1.0); EOSINOPHILS # (AUTO) 0.5 (0.0-0.4); HEMATOCRIT 33.5 % (38.2-49.6); HEMOGLOBIN 10.4 g/dL (14.0-18.0); MEAN CORPUSCULAR VOLUME 90.3 fL (81-99); MONOCYTES # (AUTO) 0.6 (0.2-0.8); MONOCYTES % 6.7 % (4.4-11.3); NEUTROPHILS # (AUTO) 5.5 (2.1-6.9); NEUTROPHILS % 63.5 % (38.7-80.0); PLATELET COUNT 180 x10e3/uL (140-360); RED BLOOD COUNT 3.71 x10e6/uL (4.3-5.7); RED CELL DISTRIBUTION WIDTH 14.7 % (11.7-14.4)
[2020-10-01 12:20] VITALS: BP 144/65
== END | disposition home or self-care (01) ==
LOC: OR 06:27
PROVIDERS: ATTEND Internal Medicine Gastroenterology
DX: K59.00 Constipation, unspecified (principal); D12.2 Benign neoplasm of ascending colon; K57.30 Diverticulosis of large intestine without perforation or abscess without bleeding; K64.8 Other hemorrhoids; Z71.3 Dietary counseling and surveillance; G47.33 Obstructive sleep apnea (adult) (pediatric); E03.9 Hypothyroidism, unspecified; I48.91 Unspecified atrial fibrillation; E66.01 Morbid (severe) obesity due to excess calories; I44.0 Atrioventricular block, first degree; J44.9 Chronic obstructive pulmonary disease, unspecified; E11.22 Type 2 diabetes mellitus with diabetic chronic kidney disease; I13.0 Hypertensive heart and chronic kidney disease with heart failure and stage 1 through stage 4 chronic kidney disease, or unspecified chronic kidney disease; N18.9 Chronic kidney disease, unspecified; I50.9 Heart failure, unspecified; F32.9 Major depressive disorder, single episode, unspecified; Z91.040 Latex allergy status; Z68.41 Body mass index [BMI] 40.0-44.9, adult; Z86.718 Personal history of other venous thrombosis and embolism; Z87.01 Personal history of pneumonia (recurrent); Z79.82 Long term (current) use of aspirin; Z79.4 Long term (current) use of insulin
CPT/HCPCS: 36415; 45385; 85025; 88305; J2001; J2704; 45378; 45380

== ENCOUNTER 2021-04-20 12:07 | Inpatient (IN) | payer MEDICARE ==
[~2021-04-20] VITALS: Ht 182.9 cm; Wt 136.1 kg
[~2021-04-20 12:07] MED LIST changes: -LIDOCAINE HCL 2% LOCAL INJ 5 ML SDV VIAL INJ ONE; -PROPOFOL IV EMULSION 10 MG/ML 20 ML VIAL ONE
[2021-04-20 13:07] LABS: BASOPHILS % 0.5 % (0.0-1.0); EOSINOPHILS # (AUTO) 0.3 (0.0-0.4); EOSINOPHILS % 3.6 % (0.0-6.0); HEMATOCRIT 34.5 % (38.2-49.6); HEMOGLOBIN 10.9 g/dL (14.0-18.0); LYMPHOCYTES # (AUTO) 2.2 (1.0-3.2); LYMPHOCYTES % 25.1 % (18.0-39.1); MEAN CORPUSCULAR HEMOGLOBIN 29.6 pg (28-32); MEAN CORPUSCULAR HGB CONC 31.6 g/dL (31-35); MEAN CORPUSCULAR VOLUME 93.8 fL (81-99); MONOCYTES # (AUTO) 0.4 (0.2-0.8); NEUTROPHILS # (AUTO) 5.6 (2.1-6.9); NEUTROPHILS % 65.5 % (38.7-80.0); PLATELET COUNT 188 x10e3/uL (140-360); RED BLOOD COUNT 3.68 x10e6/uL (4.3-5.7); RED CELL DISTRIBUTION WIDTH 13.5 % (11.7-14.4)
[2021-04-20 13:26] LABS: ALBUMIN/GLOBULIN RATIO 0.7 (0.8-2.0); ANION GAP 17.1 mmol/L (8-16); CALCIUM 8.7 mg/dL (8.4-10.2); CREATININE, SERUM 1.77 mg/dL (0.72-1.25); POTASSIUM 5.1 mmol/L (3.5-5.1)
[2021-04-20 13:32] LABS: CREATINE KINASE MB 2.6 ng/mL (0-5.0)
[2021-04-20] MEDS ORDERED: TRAMADOL HCL 50 MG TAB PO PRN (18:45)
[2021-04-20] MEDS ORDERED: BISACODYL 10 MG SUPP PR PRN (18:45)
[2021-04-20] MEDS ORDERED: ACETAMINOPHEN 325 MG TAB PO PRN (18:45)
[2021-04-20] MEDS: FUROSEMIDE 20 MG TAB PO SCH (19:37)
[2021-04-20] MEDS: EZETIMIBE 10 MG TAB PO SCH (19:37)
[2021-04-20] MEDS: FAMOTIDINE 20 MG TAB PO SCH (19:37)
[2021-04-20] MEDS: GUAIFENESIN 600MG/DEXTROMETHORPHAN 30MG TABSR PO SCH (19:37)
[2021-04-20] MEDS: ATORVASTATIN 20 MG TAB PO SCH (19:37)
[2021-04-20] MEDS ORDERED: FUROSEMIDE 20 MG TAB ONE (19:44)
[2021-04-20] MEDS ORDERED: GUAIFENESIN 600 MG TAB ONE (19:44)
[2021-04-20] MEDS ORDERED: FAMOTIDINE 20 MG TAB ONE (19:44)
[2021-04-20 21:13] LABS: CREATINE KINASE MB 1.9 ng/mL (0-5.0)
[2021-04-21] VITALS (10 sets, daily range): BP systolic 119–168; BP diastolic 65–97
[2021-04-21 05:56] LABS: CHOL/HDL RATIO 3.8 (3.9-4.7)
[2021-04-21 06:24] LABS: CREATINE KINASE MB 3.2 ng/mL (0-5.0)
[2021-04-21] MEDS: LEVOTHYROXINE SODIUM 88 MCG TAB PO SCH (06:36)
[2021-04-21] MEDS: PANTOPRAZOLE SOD 40 MG TABEC PO SCH ×3 (08:14→17:06)
[2021-04-21] MEDS: GLIMEPIRIDE 2 MG TAB PO SCH ×3 (08:14→17:05)
[2021-04-21] MEDS: GUAIFENESIN 600MG/DEXTROMETHORPHAN 30MG TABSR PO SCH ×2 (08:14→20:09)
[2021-04-21] MEDS: FUROSEMIDE 20 MG TAB PO SCH ×2 (08:14→20:09)
[2021-04-21] MEDS: ASPIRIN 81 MG CHEW TAB PO SCH (09:07)
[2021-04-21] MEDS: LORATADINE 10 MG TAB PO SCH (09:07)
[2021-04-21] MEDS: NIFEDIPINE CR 30 MG TAB PO SCH (09:08)
[2021-04-21] MEDS: DOCUSATE SODIUM 100 MG CAP PO SCH ×2 (09:08→17:06)
[2021-04-21] MEDS: RANOLAZINE 500 MG TABSR PO SCH ×2 (09:09→17:06)
[2021-04-21] MEDS: SERTRALINE HCL 50 MG TAB PO SCH (09:09)
[2021-04-21] MEDS: METOPROLOL SUCCINATE 25 MG TAB XL PO SCH ×2 (09:09→17:07)
[2021-04-21] MEDS: ATORVASTATIN 20 MG TAB PO SCH (20:09)
[2021-04-21] MEDS: EZETIMIBE 10 MG TAB PO SCH (20:09)
[2021-04-21] MEDS: FAMOTIDINE 20 MG TAB PO SCH (20:09)
[2021-04-21] MEDS ORDERED: SODIUM CHLORIDE 0.9% 1000ML 1,000 ML IV SCH (23:55)
[2021-04-22] VITALS (18 sets, daily range): BP systolic 120–157; BP diastolic 52–96
[2021-04-22] MEDS: LEVOTHYROXINE SODIUM 88 MCG TAB PO SCH (05:49)
[2021-04-22] MEDS: PANTOPRAZOLE SOD 40 MG TABEC PO SCH ×3 (07:30→15:57)
[2021-04-22] MEDS: GLIMEPIRIDE 2 MG TAB PO SCH ×3 (07:30→17:38)
[2021-04-22] MEDS: GUAIFENESIN 600MG/DEXTROMETHORPHAN 30MG TABSR PO SCH ×2 (07:45→20:50)
[2021-04-22] MEDS ORDERED: HEPARIN SOD (PORCINE) 1000 UNIT/ML 30ML ONE (08:53)
[2021-04-22] MEDS ORDERED: IOPAMIDOL 370 MG/ML 200 ML INFUS..BTL INJ ONE (08:54)
[2021-04-22] MEDS ORDERED: LIDOCAINE HCL 2% LOCAL 20 ML VIAL ONE (08:54)
[2021-04-22] MEDS ORDERED: VERAPAMIL HCL 2.5 MG/ML 2 ML VIAL ONE (08:54)
[2021-04-22] MEDS ORDERED: SODIUM CHLORIDE 0.9% 1000ML 1,000 ML ONE (08:54)
[2021-04-22] MEDS ORDERED: FENTANYL CITRATE/PF 100MCG/2 ML INJ ONE (08:54)
[2021-04-22] MEDS ORDERED: MIDAZOLAM HCL 2 MG/2 ML VIAL ONE (08:54)
[2021-04-22] MEDS ORDERED: HEPARIN SOD/SOD CHLORIDE 2,000 ML ONE (08:54)
[2021-04-22] MEDS ORDERED: NITROGLYCERIN/D5W 200 MCG/ML 250 ML ONE (08:55)
[2021-04-22] MEDS ORDERED: BACITRACIN ZINC 15 GM OINT TOP SCH (09:00)
[2021-04-22] MEDS: SERTRALINE HCL 50 MG TAB PO SCH (09:00)
[2021-04-22] MEDS: POLYETHYLENE GLYCOL 3350 17 GM PACK PO SCH ×2 (09:00→17:38)
[2021-04-22] MEDS ORDERED: SODIUM CHLORIDE 0.9% 1000ML 1,000 ML IV SCH (09:45)
[2021-04-22] MEDS: LORATADINE 10 MG TAB PO SCH (13:54)
[2021-04-22] MEDS: FUROSEMIDE 20 MG TAB PO SCH ×2 (13:54→20:50)
[2021-04-22] MEDS: DOCUSATE SODIUM 100 MG CAP PO SCH ×2 (13:54→15:56)
[2021-04-22] MEDS: ASPIRIN 81 MG CHEW TAB PO SCH (13:54)
[2021-04-22] MEDS: CLOPIDOGREL BISULFATE 75 MG TAB PO SCH (13:55)
[2021-04-22] MEDS: METOPROLOL SUCCINATE 25 MG TAB XL PO SCH ×2 (13:55→17:38)
[2021-04-22] MEDS: NIFEDIPINE CR 30 MG TAB PO SCH (14:10)
[2021-04-22] MEDS: RANOLAZINE 500 MG TABSR PO SCH ×2 (14:10→20:50)
[2021-04-22] MEDS: FAMOTIDINE 20 MG TAB PO SCH (20:50)
[2021-04-22] MEDS: EZETIMIBE 10 MG TAB PO SCH (20:51)
[2021-04-22] MEDS ORDERED: ATORVASTATIN 40 MG TAB PO SCH (21:00)
[2021-04-23] VITALS: BP 140/63
[2021-04-23 04:00] VITALS: BP 135/59
[2021-04-23 04:58] LABS: BASOPHILS % 0.4 % (0.0-1.0); EOSINOPHILS # (AUTO) 0.5 (0.0-0.4); EOSINOPHILS % 4.8 % (0.0-6.0); HEMATOCRIT 34.9 % (38.2-49.6); HEMOGLOBIN 11.1 g/dL (14.0-18.0); LYMPHOCYTES # (AUTO) 2.8 (1.0-3.2); LYMPHOCYTES % 27.6 % (18.0-39.1); MEAN CORPUSCULAR HEMOGLOBIN 29.8 pg (28-32); MEAN CORPUSCULAR HGB CONC 31.8 g/dL (31-35); MEAN CORPUSCULAR VOLUME 93.6 fL (81-99); MONOCYTES # (AUTO) 0.7 (0.2-0.8); MONOCYTES % 7.1 % (4.4-11.3); NEUTROPHILS # (AUTO) 6.1 (2.1-6.9); NEUTROPHILS % 59.7 % (38.7-80.0); PLATELET COUNT 193 x10e3/uL (140-360); RED BLOOD COUNT 3.73 x10e6/uL (4.3-5.7); RED CELL DISTRIBUTION WIDTH 12.9 % (11.7-14.4)
[2021-04-23] MEDS: LEVOTHYROXINE SODIUM 88 MCG TAB PO SCH (05:26)
[2021-04-23 05:28] LABS: ALBUMIN 2.9 g/dL (3.5-5.0); ALBUMIN/GLOBULIN RATIO 0.8 (0.8-2.0); ANION GAP 15.7 mmol/L (8-16); CALCIUM 8.6 mg/dL (8.4-10.2); CREATININE, SERUM 1.55 mg/dL (0.72-1.25); POTASSIUM 3.7 mmol/L (3.5-5.1)
[2021-04-23 07:44] VITALS: BP 135/59
[2021-04-23] MEDS: GLIMEPIRIDE 2 MG TAB PO SCH ×3 (08:40→17:40)
[2021-04-23] MEDS: POLYETHYLENE GLYCOL 3350 17 GM PACK PO SCH ×2 (08:45→17:00)
[2021-04-23] MEDS: FUROSEMIDE 20 MG TAB PO SCH (08:45)
[2021-04-23] MEDS: DOCUSATE SODIUM 100 MG CAP PO SCH ×2 (08:45→17:00)
[2021-04-23] MEDS: METOPROLOL SUCCINATE 25 MG TAB XL PO SCH ×2 (08:45→17:40)
[2021-04-23] MEDS: RANOLAZINE 500 MG TABSR PO SCH (08:45)
[2021-04-23] MEDS: PANTOPRAZOLE SOD 40 MG TABEC PO SCH ×3 (08:45→17:40)
[2021-04-23] MEDS: SERTRALINE HCL 50 MG TAB PO SCH (08:45)
[2021-04-23] MEDS: NIFEDIPINE CR 30 MG TAB PO SCH (08:45)
[2021-04-23] MEDS: ASPIRIN 81 MG CHEW TAB PO SCH (08:45)
[2021-04-23] MEDS: CLOPIDOGREL BISULFATE 75 MG TAB PO SCH (08:45)
[2021-04-23] MEDS: LORATADINE 10 MG TAB PO SCH (08:45)
[2021-04-23 08:55] VITALS: BP 131/65
[2021-04-23] MEDS ORDERED: ISOSORBIDE MONONITRATE 30 MG TAB CR PO SCH (09:00)
[2021-04-23] MEDS: GUAIFENESIN 600MG/DEXTROMETHORPHAN 30MG TABSR PO SCH (09:30)
[2021-04-23 12:30] VITALS: BP 111/64
[2021-04-23 16:00] VITALS: BP 124/61
== END 2021-04-23 17:49 | DRG 287 ==
LOC: ER 13:10 → ERHOLD 14:53 → MED/SURG2 04-21 02:40 → OBSVTOIN 04-22 11:43
PROVIDERS: ADMIT Family Medicine; ATTEND Family Medicine
PROC: 4A023N7 Measurement of Cardiac Sampling and Pressure, Left Heart, Percutaneous Approach (ICD-10-PCS; principal; 2021-04-22)
PROC: B2111ZZ Fluoroscopy of Multiple Coronary Arteries using Low Osmolar Contrast (ICD-10-PCS; 2021-04-22)
PROC: B2151ZZ Fluoroscopy of Left Heart using Low Osmolar Contrast (ICD-10-PCS; 2021-04-22)
DX: I25.110 Atherosclerotic heart disease of native coronary artery with unstable angina pectoris (principal); Z68.41 Body mass index [BMI] 40.0-44.9, adult; N39.0 Urinary tract infection, site not specified; E78.5 Hyperlipidemia, unspecified; E11.40 Type 2 diabetes mellitus with diabetic neuropathy, unspecified; Z79.899 Other long term (current) drug therapy; I89.0 Lymphedema, not elsewhere classified; D63.1 Anemia in chronic kidney disease; E66.01 Morbid (severe) obesity due to excess calories; N47.6 Balanoposthitis; N40.1 Benign prostatic hyperplasia with lower urinary tract symptoms; R33.8 Other retention of urine; I25.82 Chronic total occlusion of coronary artery; K21.00 Gastro-esophageal reflux disease with esophagitis, without bleeding
CPT/HCPCS: 36415; 71045; 76937; 80053; 80061; 82550; 82553; 82948; 84484; 85025; 87086; 87186; 93005; 93306; 93458; 99152; 99251; 99284; C1769; C1887; G0378; J1644; J2001; J2250; J3010; J7030; Q9967; U0002